=== PATIENT | male | born 1990 | race African-American/Black ===

== ENCOUNTER 2022-03-30 02:21 | Emergency (ER) | payer OTHER ==
[2022-03-30] MEDS ORDERED: Dexamethasone 4 MG TAB ONE (02:54)
[2022-03-30] MEDS ORDERED: Ibuprofen 600 MG TAB ONE (02:54)
[2022-03-30] MEDS ORDERED: Lidocaine 5% Patch TD SCH (03:15)
[2022-03-30] MEDS ORDERED: Transdermal Patch Removal TOP SCH (16:00)
== END 2022-03-30 03:59 | disposition home or self-care (01) ==
LOC: MADERS 02:21
DX: S39.012A Strain of muscle, fascia and tendon of lower back, initial encounter (principal); X50.0XXA Overexertion from strenuous movement or load, initial encounter; Y99.0 Civilian activity done for income or pay
CPT/HCPCS: 99283; J8540